=== PATIENT | female | born 1950 | race Caucasian/White ===

== ENCOUNTER → 2020-06-11 | Outpatient (CLI) | payer OTHER | END | disposition home or self-care (01) | LOC: MAMMO 02:05 | PROVIDERS: ATTEND Family Medicine | DX: Z12.31 Encounter for screening mammogram for malignant neoplasm of breast (principal) ==

== ENCOUNTER → 2021-12-02 | Outpatient (CLI) | payer MEDICARE | END | disposition home or self-care (01) | LOC: MAMMO 00:08 | PROVIDERS: ATTEND Internal Medicine Nephrology | DX: Z12.31 Encounter for screening mammogram for malignant neoplasm of breast (principal) ==

== ENCOUNTER 2022-02-06 15:33 | Inpatient (IN) | payer MEDICARE ==
[~2022-02-06] VITALS: Ht 160 cm; Wt 87.3 kg
[2022-02-06 15:52] VITALS: BP 110/72
[2022-02-06 17:41] LABS: BASO # 0.1 10*3/uL (0.0-0.1); BASO % 0.5 % (0.0-1.0); EOS # 0.2 10*3/uL (0.0-0.4); EOS % 1.5 % (1.0-4.0); HEMATOCRIT 35.4 % (37.0-47.0); LYMPH # 0.7 10*3/uL (1.3-4.4); LYMPH % 6.9 % (27.0-41.0); MEAN CELL VOLUME 85.9 fl (81.0-99.0); MEAN CORPUSCULAR HGB 29.1 pg (27.0-31.0); MEAN CORPUSCULAR HGB CONC 33.9 g/dl (33.0-37.0); MEAN PLATELET VOLUME 9.4 fl (9.6-12.3); MONO # 0.6 10*3/uL (0.1-1.0); NEUT # 8.3 10*3/uL (2.3-7.9); NEUT % 84.5 % (47.0-73.0); PLATELET COUNT AUTOMATED 309 10*3/uL (130-400); RED BLOOD COUNT 4.12 10*6/uL (4.10-5.10); RED CELL DISTRI WIDTH 13.2 % (0-14.5); WHITE BLOOD COUNT 9.9 10*3/uL (4.8-10.8)
[2022-02-06 18:07] LABS: CREATININE 1.16 mg/dL (0.55-1.02); POTASSIUM 4.4 mmol/L (3.5-5.1); TOTAL PROTEIN 7.9 gm/dL (6.4-8.2)
[2022-02-06 21:55] VITALS: BP 103/65
[2022-02-06] MEDS ORDERED: LEVOTHYROXINE50 MCG PO (21:59)
[2022-02-06] MEDS ORDERED: HYDRALAZINE HYD50 MG PO (22:00)
[2022-02-06] MEDS ORDERED: LISINOPRIL20 MG PO (22:00)
[2022-02-06] MEDS ORDERED: ATORVASTATIN CA20 M1 PO (22:01)
[2022-02-06] MEDS ORDERED: ECOTRIN81 M1 PO (22:47)
[2022-02-06] MEDS ORDERED: LISINOPRIL-HCT1 EACH PO (22:47)
[2022-02-07] VITALS: BP 103/65
[2022-02-07 06:24] LABS: HEMATOCRIT 34.7 % (37.0-47.0); MEAN CELL VOLUME 85.5 fl (81.0-99.0); MEAN CORPUSCULAR HGB 29.1 pg (27.0-31.0); MEAN PLATELET VOLUME 9.6 fl (9.6-12.3); PLATELET COUNT AUTOMATED 334 10*3/uL (130-400); RED BLOOD COUNT 4.06 10*6/uL (4.10-5.10); RED CELL DISTRI WIDTH 13.1 % (0-14.5); WHITE BLOOD COUNT 12.1 10*3/uL (4.8-10.8)
[2022-02-07 06:26] LABS: MANUAL DIFF REFLEX YES
[2022-02-07 06:28] LABS: ACT PARTIAL THROMBO TIME 37.3 SECONDS (20.0-32.1)
[2022-02-07 06:36] LABS: CREATININE 1.26 mg/dL (0.55-1.02); POTASSIUM 4.7 mmol/L (3.5-5.1)
[2022-02-07 06:43] LABS: FREE T4 1.53 ng/dl (0.76-1.46); THYROID STIM HORMONE (HS) 1.73 uIU/ml (0.358-4.75)
[2022-02-07 07:13] LABS: BASOPHILS 1 % (0-1); TOTAL CELLS COUNTED 100 #CELLS
[2022-02-07 07:14] LABS: PLATELET SUFFICIENCY NORMAL (NORMAL); POLYCHROMASIA SLIGHT; ROULEAUX SLIGHT
[2022-02-07 08:00] VITALS: BP 102/59
[2022-02-07 12:00] VITALS: BP 101/56
[2022-02-07] MEDS ORDERED: AMLODIPINE BESY10 MG PO (12:26)
[2022-02-07 15:04] LABS: BILIRUBIN Negative (Negative); BLOOD Negative (Negative); CLARITY Clear (Clear); COLOR Yellow (Yellow); GLUCOSE Negative (Negative); KETONE Negative (Negative); LEUKO ESTERASE Trace (Negative); NITRITE Negative (Negative); UROBILINOGEN 0.2 E.U./dl (0.0-1.0)
[2022-02-07 15:30] LABS: URINE CREATININE RANDOM 66.4 mg/dL
[2022-02-07 15:34] LABS: BACTERIA 1+; EPITHELIAL CELLS 51-100; RBC 0-2 rbc/hpf (0-2)
[2022-02-07 16:00] VITALS: BP 95/61
[2022-02-07] MEDS ORDERED: DOXYCYCLINE HY100 M9 PO (16:45)
[2022-02-07 20:00] VITALS: BP 92/67
[2022-02-08 05:06] LABS: RHEUMATOID FACTOR 13.2 IU/mL (<14.0)
[2022-02-08 06:09] LABS: BUN 25 mg/dl (7-24); CHLORIDE 99 mmol/L (98-107); CREATININE 0.99 mg/dL (0.55-1.02); POTASSIUM 4.4 mmol/L (3.5-5.1); SODIUM 132 mmol/L (136-145)
[2022-02-08 06:22] LABS: BASO % 0.2 % (0.0-1.0); EOS % 0.1 % (1.0-4.0); HEMATOCRIT 33.7 % (37.0-47.0); LYMPH # 0.9 10*3/uL (1.3-4.4); LYMPH % 7.3 % (27.0-41.0); MEAN CELL VOLUME 87.5 fl (81.0-99.0); MEAN CORPUSCULAR HGB 29.1 pg (27.0-31.0); MEAN CORPUSCULAR HGB CONC 33.2 g/dl (33.0-37.0); MEAN PLATELET VOLUME 9.8 fl (9.6-12.3); MONO # 0.8 10*3/uL (0.1-1.0); MONO % 6.5 % (3.0-9.0); NEUT # 10.6 10*3/uL (2.3-7.9); NEUT % 84.6 % (47.0-73.0); PLATELET COUNT AUTOMATED 393 10*3/uL (130-400); RED BLOOD COUNT 3.85 10*6/uL (4.10-5.10); RED CELL DISTRI WIDTH 13.1 % (0-14.5); WHITE BLOOD COUNT 12.5 10*3/uL (4.8-10.8)
[2022-02-08 08:00] VITALS: BP 105/48
[2022-02-08 11:35] VITALS: BP 120/54
[2022-02-08] MEDS ORDERED: Hydralazine Hyd25 MG PO (12:36)
== END 2022-02-08 17:15 | disposition home or self-care (01) | DRG 871 ==
LOC: ED 15:33 → EDHOLD 19:46 → 5E 19:46 → 4E 19:46 → 5E 21:15 → 4E 02-07 01:09
PROVIDERS: Family Medicine; Internal Medicine; Nurse Practitioner Family; ADMIT Internal Medicine; ATTEND Internal Medicine
DX: A41.9 Sepsis, unspecified organism (principal); N17.0 Acute kidney failure with tubular necrosis; J18.9 Pneumonia, unspecified organism; A69.20 Lyme disease, unspecified; L03.313 Cellulitis of chest wall; E87.1 Hypo-osmolality and hyponatremia; D64.9 Anemia, unspecified; Z20.822 Contact with and (suspected) exposure to COVID-19; E87.8 Other disorders of electrolyte and fluid balance, not elsewhere classified; R73.9 Hyperglycemia, unspecified; E03.9 Hypothyroidism, unspecified; N18.31 Chronic kidney disease, stage 3a; I12.9 Hypertensive chronic kidney disease with stage 1 through stage 4 chronic kidney disease, or unspecified chronic kidney disease; R91.1 Solitary pulmonary nodule; Z90.710 Acquired absence of both cervix and uterus; Z79.82 Long term (current) use of aspirin; Z79.899 Other long term (current) drug therapy

== ENCOUNTER → 2023-01-23 | Outpatient (CLI) | payer MEDICARE ==
[~2023-01-23] MED LIST: AMLODIPINE BESY10 MG PO; ATORVASTATIN CA20 M1 PO; DOXYCYCLINE HY100 M9 PO; ECOTRIN81 M1 PO; HYDRALAZINE HYD50 MG PO; Hydralazine Hyd25 MG PO; LEVOTHYROXINE50 MCG PO; LISINOPRIL-HCT1 EACH PO; LISINOPRIL20 MG PO
== END | disposition home or self-care (01) ==
LOC: US 00:30
PROVIDERS: ATTEND Internal Medicine Nephrology
DX: N18.31 Chronic kidney disease, stage 3a (principal); N28.9 Disorder of kidney and ureter, unspecified

== ENCOUNTER → 2023-02-13 | Outpatient (CLI) | payer MEDICARE | END | disposition home or self-care (01) | LOC: US 01:15 | PROVIDERS: ATTEND Internal Medicine Nephrology | DX: N26.1 Atrophy of kidney (terminal) (principal); N18.30 Chronic kidney disease, stage 3 unspecified ==

== ENCOUNTER 2023-07-23 09:06 | Emergency (ER) | payer MEDICARE ==
[~2023-07-23] VITALS: Ht 157.4 cm; Wt 83.9 kg
[2023-07-23 09:28] LABS: BASO # 0.1 10*3/uL (0.0-0.1); BASO % 1.1 % (0.0-1.0); EOS # 0.3 10*3/uL (0.0-0.4); EOS % 4.6 % (1.0-4.0); HEMATOCRIT 42.1 % (37.0-47.0); LYMPH # 1.7 10*3/uL (1.3-4.4); LYMPH % 23.1 % (27.0-41.0); MEAN CELL VOLUME 86.3 fl (81.0-99.0); MEAN CORPUSCULAR HGB 29.1 pg (27.0-31.0); MEAN CORPUSCULAR HGB CONC 33.7 g/dl (33.0-37.0); MONO # 0.8 10*3/uL (0.1-1.0); MONO % 11.4 % (3.0-9.0); NEUT # 4.3 10*3/uL (2.3-7.9); NEUT % 59.5 % (47.0-73.0); PLATELET COUNT AUTOMATED 296 10*3/uL (130-400); RED BLOOD COUNT 4.88 10*6/uL (4.10-5.10); RED CELL DISTRI WIDTH 12.2 % (0-14.5); WHITE BLOOD COUNT 7.2 10*3/uL (4.8-10.8)
[2023-07-23 09:39] LABS: ACT PARTIAL THROMBO TIME 32.9 SECONDS (20.0-32.1)
[2023-07-23 09:48] LABS: ALKALINE PHOSPHATASE 83 U/L (46-116); BUN 21 mg/dl (9-23); CHLORIDE 99 mmol/L (98-107); POTASSIUM 4.4 mmol/L (3.4-5.1); SGPT/ALT 28 U/L (5-49); TOTAL PROTEIN 7.7 gm/dL (6.0-8.0)
[2023-07-23] MEDS ORDERED: MELOXICAM7.5 MG PO (14:41)
== END 2023-07-23 15:05 | disposition home or self-care (01) ==
LOC: ED 09:06
PROVIDERS: Emergency Medicine
DX: M79.602 Pain in left arm (principal); Z86.16 Personal history of COVID-19; Z90.710 Acquired absence of both cervix and uterus; Z90.49 Acquired absence of other specified parts of digestive tract; Z90.89 Acquired absence of other organs; Z98.890 Other specified postprocedural states; Z87.891 Personal history of nicotine dependence

== ENCOUNTER → 2023-07-27 | Outpatient (CLI) | payer MEDICARE ==
[~2023-07-27] MED LIST changes: +MELOXICAM7.5 MG PO
== END | disposition home or self-care (01) ==
LOC: RAD 13:41
PROVIDERS: ATTEND Internal Medicine Nephrology
DX: M47.812 Spondylosis without myelopathy or radiculopathy, cervical region (principal); M62.838 Other muscle spasm

== ENCOUNTER → 2023-08-03 | Outpatient (CLI) | payer OTHER | END | disposition home or self-care (01) | LOC: RAD 11:19 | PROVIDERS: ATTEND Internal Medicine Nephrology | DX: M19.012 Primary osteoarthritis, left shoulder (principal) ==

== ENCOUNTER → 2024-01-07 | Outpatient (CLI) | payer MEDICARE | END | disposition home or self-care (01) | LOC: US 01:14 | PROVIDERS: ATTEND Internal Medicine Nephrology | DX: M79.604 Pain in right leg (principal); M79.605 Pain in left leg ==

== ENCOUNTER → 2024-05-05 | Outpatient (CLI) | payer MEDICARE | END | disposition home or self-care (01) | LOC: MAMMO 01:58 | PROVIDERS: ATTEND Internal Medicine Nephrology | DX: Z12.31 Encounter for screening mammogram for malignant neoplasm of breast (principal) ==